=== PATIENT | male | born 1950 | race African-American/Black ===

== ENCOUNTER → 2017-07-28 | Outpatient (CLI) | payer MEDICARE, BC, OTHER ==
[~2017-07-28] MED LIST: ACID REFLUX MED; AMOXICILLIN 50500 MG PO; AMOXIL875 MG PO; BUSPAR10 MG PO; CHOLESTEROL MED; CIPRO 500MG TA500 MG PO; FLEXERIL 1010 MG/TAB PO; FLOMAX0.4 MG PO; IBUPROFEN1 CRY; MOTRIN800 MG PO; NEURONTIN300 MG/CAP PO; NORCO 325 MG-51 TAB PO; OMEPRAZOLE20 MG PO; PHENERGAN 25 TA25 MG PO; PRAVASTATIN40 MG PO; TUSS PO; VOLTAREN 75 DR75 MG PO; ZITHROMAX250 MG PO
== END ==
LOC: COL.RAD 12:37
DX: R22.1 Localized swelling, mass and lump, neck (principal)

== ENCOUNTER 2017-12-31 06:52 | Day surgery (SDC) | payer MEDICARE, BC, OTHER ==
[~2017-12-31] VITALS: Ht 180.3 cm; Wt 90.9 kg
[~2017-12-31 06:52] MED LIST changes: +IBU800 M1 PO; +LIPITOR20 MG PO; +VIAGRA100 M1 PO
[2017-12-31] MEDS ORDERED: PRILOTC PO (07:08)
[2017-12-31 07:15] VITALS: BP 148/87; PULSE 60; TEMP 97.4
[2017-12-31 08:50] VITALS: BP 140/86; PULSE 79; TEMP 97
[2017-12-31 09:00] VITALS: BP 142/91; PULSE 80
[2017-12-31 09:01] VITALS: BP 130/76; PULSE 71
== END 2017-12-31 09:15 | disposition home or self-care (01) ==
LOC: SDCO 06:52
DX: K21.0 Gastro-esophageal reflux disease with esophagitis (principal); K44.9 Diaphragmatic hernia without obstruction or gangrene; E78.00 Pure hypercholesterolemia, unspecified; K25.9 Gastric ulcer, unspecified as acute or chronic, without hemorrhage or perforation; K22.2 Esophageal obstruction; Z85.46 Personal history of malignant neoplasm of prostate; Z86.010 Personal history of colon polyps; Z92.3 Personal history of irradiation
CPT/HCPCS: J2250; J3010; J7030

== ENCOUNTER 2018-09-28 21:14 | Emergency (ER) | payer MEDICARE, OTHER ==
[~2018-09-28] VITALS: Ht 180.3 cm; Wt 88.6 kg
[~2018-09-28 21:14] MED LIST changes: +PRILOTC PO
[2018-09-28 21:18] VITALS: BP 137/86; PULSE 68; TEMP 97.1
== END 2018-09-28 22:33 | disposition home or self-care (01) ==
LOC: COL.ER 21:14
DX: S05.01XA Injury of conjunctiva and corneal abrasion without foreign body, right eye, initial encounter (principal); Z85.46 Personal history of malignant neoplasm of prostate; W22.8XXA Striking against or struck by other objects, initial encounter

== ENCOUNTER 2020-07-14 01:15 | Emergency (ER) | payer MEDICARE, OTHER ==
[~2020-07-14] VITALS: Ht 180.3 cm; Wt 93.2 kg
[2020-07-14 01:41] LABS: BASO % 0.6 % (0.0-2.0); EOS # 0.2 (0.0-0.7); EOS % 3.3 % (0-4.0); GRAN # 1.9 (1.4-6.5); GRAN % 39.2 % (42.2-75.2); HEMOGLOBIN 16.1 g/dl (13.5-18.0); LYMPH # 2.1 (1.2-3.4); LYMPH % 44.6 % (20.0-51.0); MEAN CELL VOLUME 85 fl (80.0-100.0); MEAN CORPUSCULAR HEMOGLOBIN 28 pg (27.0-31.0); MEAN CORPUSCULAR HGB CONC 33 g/dl (33.0-37.0); MONO # 0.6 (0.1-0.6); MONO % 12.1 % (1.7-9.3); PLATELET COUNT 178 K/mm3 (130-400); RED BLOOD COUNT 5.78 M/mm3 (4.20-5.60); REDCELL DISTRIBUTION WIDTH-CV 15.3 % (11.5-14.5)
[2020-07-14 01:52] LABS: ALANINE AMINOTRANSFERASE 26 U/L (4-49); ALBUMIN 4.1 gm/dL (3.5-5.0); ALKALINE PHOSPHATASE 80 U/L (50-136); ANION GAP 11 mmol/L (7-16); AST,SGOT 33 U/L (15-37); BILIRUBIN,TOTAL 0.2 mg/dL (0.0-1.0); BLOOD UREA NITROGEN 14 mg/dL (9-20); CARBON DIOXIDE 22 mmol/L (22-30); CHLORIDE 104 mmol/L (98-107); CREATININE, serum 0.88 (0.66-1.25); GLUCOSE 99 mg/dL (74-106); POTASSIUM 4.2 mmol/L (3.4-5.0); SODIUM 138 mmol/L (137-145)
[2020-07-14 02:29] LABS: TROPONIN-I < 0.012 ng/mL (0.000-0.035)
[2020-07-14 05:12] VITALS: BP 151/71; PULSE 63; TEMP 97.8
== END 2020-07-14 05:12 | disposition home or self-care (01) ==
LOC: COL.ER 01:15
PROVIDERS: Emergency Medicine
DX: R07.81 Pleurodynia (principal); E78.5 Hyperlipidemia, unspecified; K21.9 Gastro-esophageal reflux disease without esophagitis; Z20.822 Contact with and (suspected) exposure to COVID-19; Z86.16 Personal history of COVID-19
CPT/HCPCS: Q9967

== ENCOUNTER 2023-03-30 17:44 | Emergency (ER) | payer MEDICARE, OTHER ==
[~2023-03-30] VITALS: Ht 180.3 cm; Wt 88.6 kg
[2023-03-30 17:49] VITALS: BP 164/69; TEMP 98.2
[2023-03-30] MEDS ORDERED: Ibuprofen 400 MG TAB PO ONE (18:30)
[2023-03-30 19:32] VITALS: PULSE 71
== END 2023-03-30 19:33 | disposition home or self-care (01) ==
LOC: COL.ER 17:44
DX: S46.211A Strain of muscle, fascia and tendon of other parts of biceps, right arm, initial encounter (principal); W00.0XXA Fall on same level due to ice and snow, initial encounter

== ENCOUNTER → 2023-09-15 | Outpatient (CLI) | payer MEDICARE, OTHER ==
[~2023-09-15] VITALS: Ht 180.3 cm; Wt 92.5 kg
[~2023-09-15] MED LIST changes: +ASPIRIN E.C. 8181 MG PO; +BUSPAR DIVIDOSE15 MG PO; +HCTZ12.5TAB PO; +NORVASC 5MG5 MG/TAB PO; +PRINIVIL20 MG PO; +PROZAC 20MG20 MG PO
[2023-09-15 12:49] VITALS: BP 165/82; PULSE 73; TEMP 97.9
[2023-09-15 13:55] VITALS: BP 175/92; PULSE 79
== END ==
LOC: COL.RAD 12:28
DX: M50.30 Other cervical disc degeneration, unspecified cervical region (principal)
CPT/HCPCS: J1100

== ENCOUNTER 2023-12-21 23:57 | Emergency (ER) | payer MEDICARE, OTHER ==
[~2023-12-21] VITALS: Ht 180.3 cm; Wt 100.0 kg
[2023-12-22 00:03] VITALS: TEMP 97.8
[2023-12-22] MEDS ORDERED: NS 1,000 ML IV ONE (02:00)
[2023-12-22] MEDS ORDERED: Ondansetron 4 MG/2 ML VIAL IV ONE (02:00)
[2023-12-22 02:22] LABS: BASO % 0.3 % (0.0-2.0); EOS % 0.3 % (0.0-4.0); GRAN # 5.6 K/mm3 (1.4-6.5); GRAN % 87.1 % (42.2-75.2); HEMATOCRIT 50.5 % (42.0-52.0); HEMOGLOBIN 16.9 g/dl (13.5-18.0); LYMPH # 0.3 K/mm3 (1.2-3.4); LYMPH % 5.3 % (20.0-51.0); MEAN CELL VOLUME 84 fl (80.0-100.0); MEAN CORPUSCULAR HEMOGLOBIN 28 pg (27-31); MEAN CORPUSCULAR HGB CONC 34 g/dl (33.0-37.0); MEAN PLATELET VOLUME 9.9 fl (7.4-10.4); MONO # 0.4 K/mm3 (0.1-0.6); MONO % 6.7 % (1.7-9.3); PLATELET COUNT 214 K/mm3 (130-400); RED BLOOD COUNT 6.01 M/mm3 (4.20-5.60); REDCELL DISTRIBUTION WIDTH-CV 14.8 % (11.5-14.5)
[2023-12-22 02:43] LABS: CALCIUM 9.6 mg/dL (8.4-10.2); CREATININE, serum 0.94 mg/dL (0.72-1.25); POTASSIUM 4.3 mEq/L (3.5-4.5); TOTAL PROTEIN 7.9 g/dl (6.2-8.1)
[2023-12-22 02:52] LABS: BILIRUBIN,TOTAL 0.6 mg/dL (0.2-1.2)
[2023-12-22] MEDS ORDERED: ZOFRAN ODT4 MG PO (03:14)
[2023-12-22 03:58] VITALS: BP 142/82; PULSE 81
== END 2023-12-22 03:58 | disposition home or self-care (01) ==
LOC: COL.ER 23:57
PROVIDERS: Emergency Medicine
DX: R11.2 Nausea with vomiting, unspecified (principal); R19.7 Diarrhea, unspecified
CPT/HCPCS: J2405; J7030

== ENCOUNTER → 2023-12-24 | Outpatient (CLI) | payer MEDICARE, OTHER ==
[~2023-12-24] VITALS: Ht 180.3 cm; Wt 96.2 kg
[~2023-12-24] MED LIST changes: +ZOFRAN ODT4 MG PO
[2023-12-24 13:06] VITALS: BP 161/78; PULSE 66; TEMP 97.6
[2023-12-24 13:55] VITALS: BP 171/61; PULSE 76
== END ==
LOC: COL.RAD 12:47
DX: M50.30 Other cervical disc degeneration, unspecified cervical region (principal)
CPT/HCPCS: J1100